=== PATIENT | male | born 1970 | race Caucasian/White ===

== ENCOUNTER 2020-02-09 16:20 | Emergency (ER) | payer BC, SELFPAY ==
[2020-02-09 16:20] VITALS: BMI 35.2
--- NOTE | 2020-02-09 16:27 | XRR_ITS ---
PROCEDURE INFORMATION: Exam: XR Chest, 1 View Exam date and time: 02/09/2020 4:28 PM Age: 49 years old Clinical indication: Chest pain; Additional info: Cp TECHNIQUE: Imaging protocol: XR of the chest Views: 1 view. COMPARISON: No relevant prior studies available. FINDINGS: Lungs: Unremarkable. No consolidation. Calcified granulomas are noted. Pleural space: Unremarkable. No pleural effusion. No pneumothorax. Heart/Mediastinum: There is cardiomegaly. Bones/joints: No acute abnormality. XR/XR chest 1V portable [id number] IMPRESSION: No acute findings.
--- NOTE | 2020-02-09 16:28 | ECG_ITS ---
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 Measurements Intervals Joice Rate: 62 P: 6 ID: [id number] QRS: 57 QRSD: 95 T: 4 QT: 409 QTc: 418 Interpretive Statements SINUS RHYTHM WITH FIRST DEGREE AV BLOCK No previous ECG available for comparison Electronically Signed On 02-09-2020 22:49:05 CDT by Mahendra Dykes M.D. [id number]
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
[2020-02-09 16:54] LABS: Basophils % 0.7 %; Eosinophils # 0.5 10^3/uL (0.0-0.8); Eosinophils % 7.9 %; Hematocrit 41.8 % (42.0-52.0); Hemoglobin 14.4 g/dL (11.7-16.6); Lymphocytes # 1.6 10^3/uL (0.8-4.8); Lymphocytes % 28.8 %; Mean Corpuscular HGB Conc 34.4 g/dL (30.0-36.0); Mean Corpuscular Hemoglobin 32.7 pg (28.0-34.0); Mean Corpuscular Volume 94.8 fL (80-94); Mean Platelet Volume 10.8 fL (7.4-10.4); Monocytes # 0.4 10^3/uL (0.2-0.9); Monocytes % 7.7 %; Neutrophils # 3.11 10^3/uL (1.8-7.7); Neutrophils % 54.7 %; Nucleated Red Blood Cells % 0 %; Platelet Count 171 10^3/cmm (130-400); Red Blood Count 4.41 10^6/uL (4.1-5.3); Red Cell Distribution Width 13.8 % (12.1-15.1); White Blood Count 5.7 10^3/uL (4.0-10.0)
[2020-02-09 17:18] LABS: Blood Urea Nitrogen 8 mg/dL (6-20); Calcium 8.4 mg/dL (8.5-10.5); Carbon Dioxide 27 mmol/L (22-29); Chloride 93 mmol/L (98-107); Glomerular Filtration Rate 89.7 mL/min (90-130); Glucose 102 mg/dL (65-115); Osmolality Calculated 268 mOsm/kg (285-295); Sodium 131 mmol/L (136-145)
[2020-02-09 17:38] VITALS: RESP 18; O2SAT 98
[2020-02-09] MEDS: ondansetron 2 mg/ML SDV 2 mL 4 MG IVP (17:38)
[2020-02-09] MEDS: morphine 4 mg/mL SDV 1 mL IVP (17:38)
[2020-02-09 18:17] LABS: Troponin(5th) Baseline 13 ng/L (0-15)
[2020-02-09 19:37] VITALS: BP 120/86; PULSE 66; RESP 14; O2SAT 97
== END 2020-02-09 19:38 | disposition home or self-care (01) ==
PROVIDERS: Emergency Provider Emergency Medicine
DX: R07.89 Other chest pain (principal)
CPT/HCPCS: 12345; 71045; 80048; 84484; 85025; 93005; 96374; 96375; 99281; 99284; J2270; J2405